=== PATIENT | female | born 1935 | race Caucasian/White ===

== ENCOUNTER → 2016-09-20 | Outpatient (CLI) | payer OTHER | LOC: FIMAGING 15:19 | PROVIDERS: ATTEND Family Medicine | DX: M25.551 Pain in right hip (principal); M25.552 Pain in left hip ==

== ENCOUNTER → 2017-10-24 | Outpatient (CLI) | payer OTHER | LOC: FIMAGING 12:58 | DX: G45.3 Amaurosis fugax (principal); I65.21 Occlusion and stenosis of right carotid artery ==

== ENCOUNTER → 2017-11-04 | Outpatient (CLI) | payer OTHER ==
[~2017-11-04] MED LIST: IOPAMIDOL (ISOVUE 370) 100 ML BTL IV ONE
== END ==
LOC: FIMAGING 15:29
PROVIDERS: ATTEND Psychiatry & Neurology Neurology
DX: G45.3 Amaurosis fugax (principal); J32.0 Chronic maxillary sinusitis
CPT/HCPCS: 70496; Q9967

== ENCOUNTER → 2017-11-14 | Outpatient (CLI) | payer OTHER | LOC: FIMAGING 15:22 | DX: I65.21 Occlusion and stenosis of right carotid artery (principal) | CPT/HCPCS: 70498; Q9967 ==